=== PATIENT | female | born 2000 | race Two or more races ===

== ENCOUNTER 2021-11-04 20:25 | Emergency (ER) | payer SELFPAY ==
[~2021-11-04] VITALS: Ht 157.5 cm; Wt 45.5 kg
[2021-11-04 20:57] VITALS: BP 111/79
[2021-11-04 21:15] LABS: BILIRUBIN,URINE NEGATIVE (NEG); CLARITY,URINE CLEAR; COLOR,URINE YELLOW; NITRITE,URINE NEGATIVE (NEG); PROTEIN,URINE NEGATIVE (NEG-TRACE); UROBILINOGEN,URINE 0.2 mg/dL (0.2 mg/dL)
[2021-11-04 21:26] LABS: BACTERIA,URINE FEW /HPF (0-FEW)
[2021-11-04 22:31] LABS: BASO % 1 % (0-3); EOS # 0.1 x10^3/uL (0.0-0.7); EOS % 1 % (0-3); HEMATOCRIT 37.5 % (36.0-47.0); HEMOGLOBIN 12.7 g/dL (12.0-15.5); LYMPH # 2.1 x10^3/uL (1.0-4.8); LYMPH % 27 % (24-48); MEAN CORPUSCULAR HEMOGLOBIN 30 pg (25-35); MEAN CORPUSCULAR HGB CONC 34 g/dL (31-37); MEAN CORPUSCULAR VOLUME 87 fL (79-100); MONO # 0.5 x10^3/uL (0.0-1.1); MONO % 6 % (0-9); NEUT # 4.9 x10^3/uL (1.8-7.7); NEUT % 65 % (31-73); PLATELET COUNT 192 x10^3/uL (140-400); RED CELL DISTRIBUTION WIDTH 12.6 % (11.5-14.5); WHITE BLOOD COUNT 7.6 x10^3/uL (4.0-11.0)
[2021-11-04 22:40] LABS: CALCIUM 8.5 mg/dL (8.5-10.1); CREATININE 0.4 mg/dL (0.6-1.0); GFR 199.6; POTASSIUM 3.4 mmol/L (3.5-5.1)
[2021-11-04 22:45] LABS: ALBUMIN 3.6 g/dL (3.4-5.0); TOTAL BILIRUBIN 0.3 mg/dL (0.2-1.0); TOTAL PROTEIN 7.3 g/dL (6.4-8.2)
--- NOTE | 2021-11-04 22:52 | RAD ---
Exam: Ultrasound OB less than 14 weeks Indication: , vaginal bleeding Technique: Real-time grayscale and color Doppler images of the pelvis were obtained by the department operations examiner. Comparisons: None FINDINGS: Uterus measures 8.0 x 5.0 x 4.4 cm. Within the endometrium there is a gestational sac with internal y olk sac and pole. [place]-rump length measured at 0.95 cm corresponding to 7 weeks 0 days gestati on. heart rate is measured at 145 bpm. Estimated due date by LMP: 06/27/2022 Estimated due date by ultrasound: 06/23/2022 Right ovary measures 2.9 x 2.0 x 1.9 cm. Left ovary measures 2.3 x 2.2 x 1.9 cm. Basilar flow identified the ovaries bilaterally. No free fluid identified and pelvis. IMPRESSION: 1. Single live intrauterine gestation measuring 7 weeks 3 days by LMP with concordant ultrasound. 2. Dedicated survey is recommended at 18-20 weeks gestation. Electronically signed by: Alexander Kilpatrick MD (11/04/2021 10:49 PM) [facility]
--- NOTE | 2021-11-04 22:58 | PHYS DOC ---
Past Medical History Past Surgical History: No Surgical History General Adult EDM: Chief Complaint: VAGINAL BLEEDING HPI: HPI: Patient is a 21-year-old female who presents to the emergency department complaining of vaginal bleeding she noticed approximately 1700 today. Patient denies pelvic discomfort or cramping. Noticed bright red blood in her pantiliner. Denies vaginal bleeding at this time. Patient reports that she is for test. Last menstrual cycle ended on September 08, 2021 with normal duration and flow. Patient reports OB care follow-up this coming December 13. Reports vaginal discharge, is concerned about sexually transmitted diseases. Patient reports this is her first time being . Denies dizziness, chest palpitations, chest pains, shortness of breath. Patient denies seeing blood in her stool or in her urine. Patient denies other physical complaints or physical concerns. Review of Systems: Review of Systems: 14 body systems of review of systems have been reviewed. See HPI for pertinent positives and negative responses, otherwise all other systems are negative, nonpertinent or noncontributory. Constitutional: Negative except as outlined in HPI above. Skin: Negative except as outlined in HPI above. Eyes: Negative except as outlined in HPI above. HENT: Negative except as outlined in HPI above. Respiratory: Negative except as outlined in HPI above. Cardiovascular: Negative except as outlined in HPI above. GI: Negative except as outlined in HPI above. : Negative except as outlined in HPI above. Musculoskeletal: Negative except as outlined in HPI above. Integument: Negative except as outlined in HPI above. Neurologic: Negative except as outlined in HPI above. Endocrine: Negative except as outlined in HPI above. Lymphatic: Negative except as outlined in HPI above. Psychiatric: Negative except as outlined in HPI above. Heart Score: C/O Chest Pain: No Risk Factors: Risk Factors: DM, Current or recent (<one month) smoker, HTN, HLP, family history of CAD, obesity. Risk Scores: Score 0 - 3: 2.5% MACE over next 6 weeks - Discharge Home Score 4 - 6: 20.3% MACE over next 6 weeks - Admit for Clinical Observation Score 7 - 10: 72.7% MACE over next 6 weeks - Early Invasive Strategies Allergies: Allergies: Allergies Coded Allergies Type Severity Reaction Last Updated Verified No Known Drug Allergies 11/04/21 No Physical Exam: PE: Constitutional: Well developed, well nourished, no acute distress, non-toxic appearance. 21-year-old female in no apparent distress. HENT: Normocephalic, atraumatic. Eyes: Conjunctiva normal, no discharge. Neck: Normal range of motion. Cardiovascular: Distal cap refill less than 2 seconds, no cyanosis appreciated. Lungs & Thorax: Patient is in no respiratory distress, no adventitious lung sounds appreciated. Abdomen: Bowel sounds normal, soft, no tenderness, no masses, no pulsatile masses. No bruising or skin discoloration of the abdomen. Skin: Warm, dry, no erythema, no rash. Back: No tenderness, no CVA tenderness. Extremities: No tenderness, no cyanosis, no clubbing, ROM intact, no edema. Neurologic: Alert and oriented X 3, normal motor function, normal sensory function, no focal deficits noted. Psychologic: Affect normal, judgement normal, mood normal. : Pelvic examination performed with female ED nurse at bedside for chair installer, external vaginal structures are without rashes or lesions, no discharge appreciated, no bleeding appreciated, speculum exam revealed pink vaginal tissue with out blood in the vault, the cervical os is closed, there is frothy white discharge around the cervix without erythemic tissue. Wet prep/GC/chlamydia cultures obtained and sent to lab. Patient tolerated well. Current Patient Data: Labs: Laboratory Tests Test 11/04/21 20:50 11/04/21 20:55 11/04/21 22:25 Urine Collection Type Unknown Urine Color Yellow Urine Clarity Clear Urine pH 6.0 (<5.0-8.0) Urine Specific [place] 1.015 (1.000-1.030) Urine Protein Negative mg/dL (NEG-TRACE) Urine Glucose (UA) Negative mg/dL (NEG) Urine Ketones (Stick) 40 mg/dL (NEG) Urine Blood Small (NEG) Urine Nitrite Negative (NEG) Urine Bilirubin Negative (NEG) Urine Urobilinogen Dipstick 0.2 mg/dL (0.2 mg/dL) Urine Leukocyte Esterase Negative (NEG) Urine RBC 1-2 /HPF (0-2) Urine WBC 1-4 /HPF (0-4) Urine Squamous Epithelial Cells Mod /LPF Urine Bacteria Few /HPF (0-FEW) POC Urine HCG, Qualitative Hcg positive (Negative) White Blood Count 7.6 x10^3/uL (4.0-11.0) Red Blood Count 4.30 x10^6/uL (3.50-5.40) Hemoglobin 12.7 g/dL (12.0-15.5) Hematocrit 37.5 % (36.0-47.0) Mean Corpuscular Volume 87 fL (79-100) Mean Corpuscular Hemoglobin 30 pg (25-35) Mean Corpuscular Hemoglobin Concent 34 g/dL (31-37) Red Cell Distribution Width 12.6 % (11.5-14.5) Platelet Count 192 x10^3/uL (140-400) Neutrophils (%) (Auto) 65 % (31-73) Lymphocytes (%) (Auto) 27 % (24-48) Monocytes (%) (Auto) 6 % (0-9) Eosinophils (%) (Auto) 1 % (0-3) Basophils (%) (Auto) 1 % (0-3) Neutrophils # (Auto) 4.9 x10^3/uL (1.8-7.7) Lymphocytes # (Auto) 2.1 x10^3/uL (1.0-4.8) Monocytes # (Auto) 0.5 x10^3/uL (0.0-1.1) Eosinophils # (Auto) 0.1 x10^3/uL (0.0-0.7) Basophils # (Auto) 0.0 x10^3/uL (0.0-0.2) Sodium Level 138 mmol/L (136-145) Potassium Level 3.4 mmol/L (3.5-5.1) L Chloride Level 103 mmol/L (98-107) Carbon Dioxide Level 24 mmol/L (21-32) Anion Gap 11 (6-14) Blood Urea Nitrogen 9 mg/dL (7-20) Creatinine 0.4 mg/dL (0.6-1.0) L Estimated GFR (Cockcroft-Gault) 199.6 BUN/Creatinine Ratio 23 (6-20) H Glucose Level 90 mg/dL (70-99) Calcium Level 8.5 mg/dL (8.5-10.1) Total Bilirubin 0.3 mg/dL (0.2-1.0) Aspartate Amino Transferase (AST) 7 U/L (15-37) L Alanine Aminotransferase (ALT) 10 U/L (14-59) L Alkaline Phosphatase 38 U/L (46-116) L Total Protein 7.3 g/dL (6.4-8.2) Albumin 3.6 g/dL (3.4-5.0) Albumin/Globulin Ratio 1.0 (1.0-1.7) Laboratory Tests 11/04/21 22:25 Laboratory Tests 11/04/21 22:25 Vital Signs: Vital Signs Date Time Temp Pulse Resp B/P (MAP) Pulse Ox O2 Delivery O2 Flow Rate FiO2 11/04/21 20:57 98.1 89 18 111/79 (90) 100 Room Air 98.1 EKG: EKG: [] Radiology/Procedures: Radiology/Procedures: STATUS: REG ER ORD. PHYSICIAN: YURY SKAGGS APRN REASON: , vaginal bleeding PROCEDURE: OB TRANSVAG Exam: Ultrasound OB less than 14 weeks Indication: , vaginal bleeding Technique: Real-time grayscale and color Doppler images of the pelvis were obtained by the department mother's helper. Comparisons: None FINDINGS: Uterus measures 8.0 x 5.0 x 4.4 cm. Within the endometrium there is a gestational sac with internal yolk sac and pole. [place]-rump length measured at 0.95 cm corresponding to 7 weeks 0 days gestation. heart rate is measured at 145 bpm. Estimated due date by LMP: 06/27/2022 Estimated due date by ultrasound: 06/23/2022 Right ovary measures 2.9 x 2.0 x 1.9 cm. Left ovary measures 2.3 x 2.2 x 1.9 cm. Basilar flow identified the ovaries bilaterally. No free fluid identified and pelvis. IMPRESSION: 1. Single live intrauterine gestation measuring 7 weeks 3 days by LMP with concordant ultrasound. 2. Dedicated survey is recommended at 18-20 weeks gestation. Electronically signed by: Alexander Kilpatrick MD (11/04/2021 10:49 PM) [facility] Course & Med Decision Making: Course & Med Decision Making Pertinent Labs and Imaging studies reviewed. (See chart for details) 21-year-old female 1 para 0, vital signs reviewed, presents to the emergency department concerning vaginal bleeding. Physical examination is concerning for STIs. We will send urinalysis assay, test, beta hCG, CBC, CMP, OB less than 14 weeks ultrasound, ABO/Rh type. Patient is B+, RhoGam not indicated, pelvic examination did not reveal any bleeding, the patient's ultrasound reveals 7-week gestation IUP, beta hCG 84,629. Discussed findings with patient, discussed threatened miscarriage precautions and concerns, strict follow-up with OB care in 2 days for beta hCG redraw for comparison and reevaluation of vaginal bleeding. Discussed return to ER precautions and concerns. Discussed pelvic rest. Patient gave verbal understanding of and is amenable to ED discharge planning. Dragon Disclaimer: Dragon Disclaimer: This electronic medical record was generated, in whole or in part, using a voice recognition dictation system. Departure Departure Impression: Primary Impression: Threatened miscarriage Additional Impression: Bacterial vaginosis in Disposition: HOME / SELF CARE / HOMELESS Condition: GOOD Referrals: NO PCP (PCP) Patient Instructions: Bacterial Vaginosis, Threatened Miscarriage Additional Instructions: Usted fue visto hoy en el departamento de emergencias por sangrado benito el embarazo. Ko ecografa mostr un embarazo intrauterino de aproximadamente 7 semanas de gestacin. Ko examen plvico no mostr ningn sangrado. Sin embargo, hubo descarga que es preocupante para las enfermedades de transmisin sexual. No tiene tricomonas, no tiene candidiasis, no tiene infeccin del tracto urinario, sin embargo, los cultivos vaginales mostraron vaginosis bacteriana. Comenz con un antibitico en el departamento de emergencias para la vaginosis bacteriana, la receta se envi a la farmacia de ko eleccin, tmela segn las indicaciones hasta completarla. Tambin te estoy tratando por gonorrea y clamidia. Ko prueba no volvi hoy, sin embargo, debido a que est embarazada, la tratar profilc ticamente. Le jeanine janessa inyeccin intramuscular de Rocephin, tambin le jeanine 4 tabletas de azitromicina. Sagar un seguimiento con ko obstetra/gineclogo en 2 dsouza. Hgales saber que ko nivel cuantitativo de beta hCG es 84.629. Tu tipo de aliyah es B+. Regrese al departamento de emergencias si los sntomas empeoran u otras inquietudes. Ines por visitar nuestro Departamento de Emergencias. Fue un placer atenderlo hoy en el departamento de emergencias y le agradecemos que nos haya confiado ko atencin. Si surge algn problema adicional, no dude en volver a visitarnos. Sagar un seguimiento con ko proveedor de atencin primaria para que puedan planificar atencin adicional si es necesario y conocer el problema que tuvo. Si los sntomas empeoran, regrese al Departamento de Emergencias. Cualquier sntoma preocupante que comience, amanda dolor en el pecho, falta de aire, debilidad o entumecimiento en un lado del cuerpo, fiebre kendall o cualquier otro sntoma preocupante, regresa a la russell de emergencias. You were seen today in the emergency department for bleeding during . Your sonogram showed a intrauterine at approximately 7-week gestation. Your pelvic examination did not show any bleeding. However there was discharge that is concerning for sexually transmitted diseases. You do not have trichomonas, you do not have a yeast infection, you did not have a urinary tract infection, however the vaginal cultures did show bacterial vaginosis. You were started on an antibiotic in the emergency department for bacterial vaginosis, the prescription was sent to the pharmacy of your choice, please take as directed until completed. I am also treating you for gonorrhea and chlamydia. Your test did not come back today however because you are I will treat you prophylactically. You are given one intramuscular injection of Rocephin, you are also given 4 tablets of azithromycin. Please follow-up with your MARKET RESEARCH ANALYST in 2 days. Please let them know you are beta hCG quantitative level is 84,629. Your blood type is B+. Please return to the emergency department for worsening symptoms or other concerns. Thank you for visiting our Emergency Department. It was a pleasure taking care of you today in the emergency department and we appreciate you trusting us with your care. If any additional problems come up don't hesitate to return to visit us. Please follow up with your primary care provider so they can plan additional care if needed and know about the problem that you had. If symptoms worsen come back to the Emergency Department. Any concerning symptoms that start such as chest pain, shortness of air, weakness or numbness on one side of the body, running high fevers or any other concerning symptoms return to the ER. Scripts Metronidazole (METRONIDAZOLE) 500 Mg Tablet 1 TAB PO BID for Vaginosis for 7 Days, #14 TAB 0 Refills Prov: YURY SKAGGS APRN 11/05/21 YURY SKAGGS APRN Nov 04, 2021 22:58
[2021-11-05] MEDS ORDERED: METR-34 PO (00:26)
[2021-11-05] MEDS ORDERED: cefTRIAXone IM 500 MG VIAL. IM ONE (00:30)
[2021-11-05] MEDS ORDERED: metroNIDAZOLE 500 MG TABLET PO ONE (00:30)
[2021-11-05] MEDS ORDERED: AZITHROMYCIN 250 MG TABLET. PO ONE (00:30)
[2021-11-06 21:08] LABS: GC PROBE Negative (Negative)
== END 2021-11-05 00:50 | disposition home or self-care (01) ==
LOC: ER 20:25
DX: O20.0 Threatened abortion (principal); O23.591 Infection of other part of genital tract in pregnancy, first trimester; B96.89 Other specified bacterial agents as the cause of diseases classified elsewhere; Z3A.01 Less than 8 weeks gestation of pregnancy
CPT/HCPCS: 36415; 76817; 80053; 81001; 81025; 84702; 85025; 86900; 86901; 87491; 87591; 99284; Q0111